=== PATIENT | male | born 1950 | race Caucasian/White ===

== ENCOUNTER → 2017-10-18 | Outpatient (CLI) | payer BC ==
[~2017-10-18] MED LIST: CATHETER FLUSH 10 ML SYR IV PRN; IOHEXOL 350 MG/ML 150 ML (OMNIPAQUE 350) VIAL IV ONE; NS 100 ML (IVPB) BAG IV ONE
[2017-10-18 15:57] LABS: BUN/CREATININE RATIO 14; CREATININE SERUM 1.14 MG/DL (0.60-1.30); GFR ESTIMATED > 60
--- NOTE | 2017-10-18 16:45 | Diagnostic Imaging Report ---
PROCEDURE: CT angiography of the chest with contrast. TECHNIQUE: Multiple contiguous axial images were obtained through the chest after uneventful bolus administration of intravenous contrast. Reconstructed CTA MIP acquisitions were also performed. INDICATION: Shortness of air and COPD. COMPARISON: No prior studies are available for comparison. FINDINGS: Evaluation of the pulmonary arterial system is without thromboembolism. No filling defects are seen within the central, lobar, or segmental pulmonary arterial branches. The thoracic aorta is normal in caliber. No dissection is seen. No pericardial or pleural fluid is identified. No definite axillary, hilar, or mediastinal lymphadenopathy is detected. No pulmonary infiltrates, nodules, or masses are seen. There is minimal scarring or subsegmental atelectasis in the left lower lobe. The upper abdomen contains numerous circumscribed low-density lesions suggestive of cysts. IMPRESSION: No evidence of pulmonary embolism or thoracic aortic dissection. No acute feature in the chest is identified. Dictated by: Dictated on workstation # [id number]
[2017-10-18 17:07] LABS: ABG BASE EXCESS 6.1 MMOL/L (-2.5-2.5); ABG OXYGEN SATURATION 65 % (94-100); ABG PCO2 53 MMHG (35-45); ABG PH 7.39 (7.37-7.43); ABG TCO2 32.7 MMOL/L (21.0-31.0)
[2017-10-18 17:14] LABS: ABG PO2 37 MMHG (79-93); ALLENS TEST POSITIVE
[2017-10-18 17:15] LABS: PATIENT TEMP 98.3; VENTILATOR NO
== END ==
LOC: RAD 15:02
PROVIDERS: ATTEND Nurse Practitioner Family
DX: J44.9 Chronic obstructive pulmonary disease, unspecified (principal); R50.9 Fever, unspecified
CPT/HCPCS: 36415; 36600; 71275; 82565; 82805; 84520

== ENCOUNTER → 2017-12-05 | Outpatient (CLI) | payer BC | LOC: WOUNDCARE 12:17 | PROVIDERS: ATTEND Surgery | DX: L97.421 Non-pressure chronic ulcer of left heel and midfoot limited to breakdown of skin (principal); L95.9 Vasculitis limited to the skin, unspecified; I89.0 Lymphedema, not elsewhere classified | CPT/HCPCS: 99213 ==

== ENCOUNTER → 2017-12-12 | Outpatient (CLI) | payer BC | LOC: WOUNDCARE 11:24 | PROVIDERS: ATTEND Surgery | DX: L97.421 Non-pressure chronic ulcer of left heel and midfoot limited to breakdown of skin (principal); I89.0 Lymphedema, not elsewhere classified; L95.9 Vasculitis limited to the skin, unspecified | CPT/HCPCS: 99212 ==

== ENCOUNTER → 2018-05-12 | Outpatient (CLI) | payer BC, MEDICARE ==
--- NOTE | 2018-05-12 13:48 | Diagnostic Imaging Report ---
Indication: Left lung crackles and cough. Time of exam: 12:49 PM No prior studies are available for comparison. The heart is enlarged. Lungs are clear. No infiltrate or failure is seen. No effusion or pneumothorax is identified. Impression: Cardiomegaly. No acute cardiopulmonary process is detected. Dictated by: Dictated on workstation # [id number]
== END ==
LOC: RAD 12:12
PROVIDERS: ATTEND Nurse Practitioner Family
DX: I51.7 Cardiomegaly (principal); J98.4 Other disorders of lung; G47.30 Sleep apnea, unspecified; E66.2 Morbid (severe) obesity with alveolar hypoventilation; J30.2 Other seasonal allergic rhinitis; R06.00 Dyspnea, unspecified; R09.02 Hypoxemia
CPT/HCPCS: 71046